=== PATIENT | male | born 1945 | race Caucasian/White ===

== ENCOUNTER → 2016-12-03 | Outpatient (CLI) | payer BC, OTHER | LOC: BMCIMAGING 13:58 | PROVIDERS: ATTEND Internal Medicine | DX: R05 Cough (principal) ==

== ENCOUNTER → 2016-12-17 | Outpatient (CLI) | payer BC, OTHER ==
[~2016-12-17] MED LIST: IOPAMIDOL (ISOVUE 370) 100 ML BTL IV ONE
[2016-12-17 10:15] LABS: CREATININE 1.7 mg/dL (0.7-1.3)
== END ==
LOC: FIMAGING 09:32
PROVIDERS: ATTEND Internal Medicine
DX: Z86.79 Personal history of other diseases of the circulatory system (principal); J98.11 Atelectasis; N20.0 Calculus of kidney
CPT/HCPCS: Q9967